=== PATIENT | female | born 1950 | race Caucasian/White ===

== ENCOUNTER 2018-12-13 07:02 | Outpatient (CLI) | payer MEDICARE, MEDICAID, SELFPAY ==
[2018-12-13 08:38] LABS: Anion Gap 6.8 mmol/L (3-11); BUN 24 mg/dL (7-18); CO2 32.2 mmol/L (21.0-32.0); CREATININE 0.81 mg/dL (0.55-1.02); Calcium 8.9 mg/dL (8.5-10.1); Calculated LDL 169; Chloride 103 mmol/L (98-107); Cholesterol 250 mg/dL (50-200); Glucose 85 mg/dL (70-100); HDL Cholesterol 69 mg/dL (40-60); Potassium 3.8 mmol/L (3.5-5.1); Sodium 142 mmol/L (136-145); Triglyceride 60 mg/dL (30-150)
== END 2018-12-13 07:22 ==
PROVIDERS: PCP Internal Medicine; Visit Provider Internal Medicine
DX: I10 Essential (primary) hypertension (principal); E78.00 Pure hypercholesterolemia, unspecified
CPT/HCPCS: 36415; 80048; 80061; 83721

== ENCOUNTER 2019-06-25 12:24 | Outpatient (REF) | payer MEDICARE, SELFPAY ==
[2019-06-25 13:32] LABS: Calculated LDL 138 mg/dL; Cholesterol 214 mg/dL (<200); HDL Cholesterol 65 mg/dL (40-60); Triglyceride 59 mg/dL (<150)
== END 2019-06-25 12:44 ==
LOC: LBN 12:24
PROVIDERS: PCP Internal Medicine; Visit Provider Internal Medicine
DX: E78.00 Pure hypercholesterolemia, unspecified (principal)
CPT/HCPCS: 80061

== ENCOUNTER 2019-08-22 02:19 | Outpatient (CLI) | payer MEDICARE, SELFPAY ==
--- NOTE | 2019-08-22 07:15 | DI.MAMMO_ITS ---
EXAM: MG MAMMO SCREENING CLINICAL HISTORY: SCREENING, Z12.39. TECHNIQUE: Bilateral full field digital CC and MLO mammographic images were obtained with 3D tomosyn thesis and utilizing computer aided detection (CAD). COMPARISON: Available for comparison. FINDINGS: Masses/Architectural Distortion: None seen. Microcalcifications: No suspicious pleomorphic-type are seen. Skin Thickening/Nipple Retraction: None. IMPRESSION: 1. No significant interval change with no specific features of malignancy noted. 2. Unless there is more urgent need, screening mammography is recommended, as per [employer] guidelines. ACR BI-RAD Category- 1 Negative Breast Density - Category C - Heterogeneously dense The mammogram demonstrates the patient's breast tissue is dense. Dense breast tissue is very common a nd is not abnormal but dense breast tissue can make it harder to find cancer on a mammogram. Also, de nse breast tissue may increase their breast cancer risk. This information about the result of the [facility] mogram report was provided to the patient to raise their awareness. Use this report when you speak wi th the patient about their risks for breast cancer, which includes their family history. At that time , you may recommend for more screening tests (Ultrasound or MRI) as they might be useful based on the ir risk. A negative radiographic report should not delay biopsy if a dominant or clinically suspicious mass is present. Up to ten percent of cancers are not identified on mammography. A negative report may reinforce clinical impression. Adenosis and dense breasts may obscure an underlying neoplasm. False positive reports average 6 to 10%. Patient will receive a letter notifying them of these results.
== END 2019-08-22 02:39 ==
PROVIDERS: PCP Internal Medicine; Visit Provider Family Medicine
DX: Z12.31 Encounter for screening mammogram for malignant neoplasm of breast (principal)
CPT/HCPCS: 77063; 77067

== ENCOUNTER 2019-11-13 15:45 | Outpatient (REF) | payer MEDICARE, SELFPAY ==
[2019-11-13 16:21] LABS: Bilirubin Negative (Negative); Blood Small (Negative); Clarity Sl Cloudy (Clear); Glucose Negative (Negative); Ketones Trace mg/dL (Negative); Leukocyte Esterase Moderate (Negative); Nitrite Negative (Negative); Specific Gravity >= 1.030 (1.005-1.025); Urobilinogen 0.2 EU/dL (Up TO 0.2)
[2019-11-13 17:47] LABS: Bacteria Many HPF (Negative); C & S Indicated? No/Sq. Contamination; Casts 5-10 Hyaline LPF (Negative); Crystals Negative HPF (Negative); Epithelial Cells Many HPF (Negative); Mucus Negative (Negative); RBC 20-50 HPF (0-2); WBC >50 HPF (0-5)
== END 2019-11-13 16:05 ==
LOC: LBN 15:45
PROVIDERS: PCP Internal Medicine; Visit Provider Internal Medicine
DX: R30.0 Dysuria (principal)
CPT/HCPCS: 81003; 81015

== ENCOUNTER 2021-08-17 01:21 | Outpatient (CLI) | payer MEDICARE, MEDICAID, SELFPAY ==
--- NOTE | 2021-08-17 07:00 | DI.MAMMO_ITS ---
Exam(s) MAMMO SCREENING EXAM: MAMMO SCREENING CLINICAL HISTORY: screening,z12.39 TECHNIQUE: Bilateral full field digital CC and MLO mammographic images were obtained with 3D tomosyn thesis and utilizing computer aided detection (CAD). COMPARISON: Available for comparison. FINDINGS: Masses/Architectural Distortion: None seen. Microcalcifications: No suspicious pleomorphic-type are seen. Skin Thickening/Nipple Retraction: None. IMPRESSION: 1. No significant interval change with no specific features of malignancy noted. 2. Unless there is more urgent need, screening mammography is recommended, as per [employer] guidelines. BI-RADS Category 1 - Negative Breast Density - Category C - Heterogeneously dense Breast density category C or D implies that the patient has dense breast tissue. Dense breast tissue is very common and is not abnormal but dense breast tissue can make it harder to find cancer on a ma mmogram. Also, dense breast tissue may increase their breast cancer risk. This information about the result of the mammogram report was provided to the patient to raise their awareness. Use this report when you speak with the patient about their risks for breast cancer, which includes their family hist ory. At that time, you may recommend for more screening tests (Ultrasound or MRI) as they might be us eful based on their risk. A negative radiographic report should not delay biopsy if a dominant or clinically suspicious mass is present. Up to ten percent of cancers are not identified on mammography. A negative report may reinforce clinical impression. Adenosis and dense breasts may obscure an underlying neoplasm. False positive reports average 6 to 10%. Patient will receive a letter notifying them of these results.
== END 2021-08-17 01:41 ==
PROVIDERS: PCP Internal Medicine; Visit Provider Internal Medicine
DX: Z12.31 Encounter for screening mammogram for malignant neoplasm of breast (principal)
CPT/HCPCS: 77063; 77067

== ENCOUNTER 2022-08-24 01:47 | Outpatient (CLI) | payer MEDICARE, SELFPAY ==
[2022-08-24 11:26] LABS: Anion Gap 8.5 mmol/L (3-11); BUN 20 mg/dL (7-18); CO2 28.5 mmol/L (21.0-32.0); CREATININE 0.9 mg/dL (0.55-1.02); Chloride 104 mmol/L (98-107); Glucose 94 mg/dL (74-106); Potassium 3.7 mmol/L (3.5-5.1); Sodium 141 mmol/L (136-145)
== END 2022-08-24 01:48 | disposition home or self-care (01) ==
LOC: LBO 01:48
PROVIDERS: PCP Nurse Practitioner Adult Health; Referring Provider Nurse Practitioner Adult Health; Visit Provider Nurse Practitioner Adult Health
DX: I10 Essential (primary) hypertension (principal)
CPT/HCPCS: 36415; 80048

== ENCOUNTER 2022-09-09 08:38 | Emergency (ER) | payer MEDICARE, SELFPAY ==
--- NOTE | 2022-09-09 08:30 | RT.EKG_ITS ---
APPROVED REPORT Exam: Resting ECG Reason for Exam: chest pain Patient Location: E HR:71 bpm ECG Measurements Heart Rate 71 AXIS AR 157 P 58 QRSd 72 QRS 29 QT 395 T 44 QTc 429 Conclusion Sinus rhythm...normal P axis, V-rate 60- 99 sinus rhythm, normal axis, non ischemic
[2022-09-09 08:51] VITALS: BP 160/101; PULSE 74; RESP 21; TEMP 36.5; O2SAT 96
[2022-09-09 08:54] VITALS: RESP 12
[2022-09-09 08:55] VITALS: RESP 18
--- NOTE | 2022-09-09 09:00 | DI.RAD_ITS ---
Exam(s) XR CHEST 2V PA LATERAL EXAM: XR CHEST 2V PA LATERAL CLINICAL HISTORY: chest pain, left side for two months. TECHNIQUE: 2D digital imaging was performed. COMPARISON: No exams were available for comparison FINDINGS: 2 views: Heart size is normal. The mediastinum is not widened. Lungs are clear. No infiltrates nor pleural effusions. IMPRESSION: No acute pulmonary findings. DATA REPOSITORY: RADIATION DOSE DELIVERED:
--- NOTE | 2022-09-09 09:03 | ED.GENADUL_ITS ---
Discharge Plan Disposition Patient Disposition: Home Discharge Details Chief Complaint: Chest Pain Clinical Impression: Elevated white blood cell count Primary Care Provider: Yamile Washington ED Provider: Star Martinez Home Meds and New Rx's Prescriptions: No Action alprazolam 0.25 mg tablet 0.25 mg PO PRN PRN (Reason: anxiety) Qty: 4 0RF Rx Instructions: Take just prior to leaving home and again on arrival at dentist's if needed amlodipine 2.5 mg tablet See Rx Instructions .ROUTE .COMPLEX Qty: 90 3RF Dose Instruction: TAKE ONE TABLET BY MOUTH EVERY DAY Rx Instructions: TAKE ONE TABLET BY MOUTH EVERY DAY aspirin [Aspir-81] 81 MG tablet,delayed release (DR/EC) 81 mg PO PRN PRN Patient Comments: takes on occassion Discharge Instructions Instructions: Leukocytosis (ED) Additional Instructions: Please follow closely with your primary care physician as your white blood cell count was extremely elevated today given your family history and the symptoms you are experiencing currently, it is advisable that you were evaluated further for possible lymphoma/leukemia. If you have any worsening symptoms or trouble obtaining close follow-up/testing please return to the emergency department Medical Decision Making 72-year-old female history of hypertension hypercholesterolemia presents with 2 months of left anterior chest discomfort, nonexertional, not exacerbated by movement or breathing, nonradiating, patient has no prior cardiac history no history of thromboembolic disease, no exogenous estrogen use. Patient is calm cooperative resting comfortably, mildly hypertensive on arrival; equal radial pulses, no peripheral edema lungs clear bilaterally. Consider musculoskeletal anterior chest discomfort versus anxiety versus ACS versus less likely PE versus less likely aortic pathology pneumonia or pneumothorax. However given age comorbidities and duration of symptoms will obtain basic labs troponin chest x- ray patient took an aspirin before arrival, EKG normal sinus rhythm some flattening of T waves lead III and poor baseline in V5 otherwise nonischemic. Disposition likely home with close follow-up pending results 10: 01 elevated white blood cell count with lymphocytic predominance. No infectious symptoms. Patient's mother did have lymphoma. Counseled patient regarding these findings and stressed the importance of close follow-up and further diagnostic testing as an outpatient. Given home care instructions and return precautions. HPI General Date/Time Provider Initiated Documentation: 09/09/22 08:51 . HPI Narrative: 72-year-old female history of hypercholesterolemia, hypertension, presents with anterior chest pain over the last several months persistent in nature left-sided nonradiating. Patient denies history of cardiac disease. Denies history of thromboembolic disease. No history of exogenous estrogen use. Related Data Home Medications Medication Instructions Recorded Confirmed aspirin 81 mg tablet,delayed 81 mg PO PRN PRN 08/20/17 09/09/22 release (Aspir-) alprazolam 0.25 mg tablet 0.25 mg PO PRN PRN anxiety #4 tabs 07/07/21 09/09/22 amlodipine 2.5 mg tablet See Rx Instructions .Route 06/29/22 09/09/22 .COMPLEX #90 tabs Previous Rx's Medication Instructions Recorded alprazolam 0.25 mg tablet 0.25 mg PO PRN PRN anxiety #4 tabs 07/07/21 amlodipine 2.5 mg tablet See Rx Instructions .Route 06/29/22 .COMPLEX #90 tabs Allergies Allergy/AdvReac Type Severity Reaction Status Date / Time Sulfa (Sulfonamide Allergy Severe skin rash Verified 09/09/22 08:56 Antibiotics) General Stated Complaint: Chest Pain BONITA: 3 Review of Systems Narrative: Review of Systems Constitutional: negative Eyes: negative ENT: negative Cardiovascular: Chest pain Respiratory: negative Gastrointestinal: negative : negative Musculoskeletal: negative Skin: negative Neurologic: negative Psych: negative PFSH All Active Problems (Updated 09/09/22 @ 10:04 by Star Martinez MD) Elevated white blood cell count (Acute) Facial eczema (Acute) Essential hypertension (Chronic ~2018) Pure hypercholesterolemia (Chronic 05/28/14) Declines statin (2022) Medical History (Updated 09/09/22 @ 10:04 by Star Martinez MD) Anxiety Alprazolam for dental care Blepharitis, unspecified (06/16/15) Family history of colon cancer (~08/2022) declines colonoscopy Family History (Updated 08/15/22 @ 12:01 by Yamile Washington NP) Father Hyperlipidemia Hypertension Family hx of prostate cancer Maternal Grandmother Breast cancer Mother , Lymphoma Depression Anxiety and possible Bipolar Daughter , age 54 years Colon cancer Son Suicide Social History Smoking/Tobacco Use Status: Former Tobacco Use Smoking risk assessment performed?: Yes Alcohol Intake: never Drug use: Never Substance use type: does not use Household members: spouse, children and other Details: father Number of Children: 5 Communication Needs: Corrective Lenses 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, 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 What is your relationship status?: How often do you talk on the phone with friends or family?: three or more times per week Panel score (0-1 are the most socially isolated patients): 2 What type of physical activity do you participate in: walking Seatbelt use: always Drive intox or ride w/intox party bus driver: No Working smoke detector in home: Yes Carbon monox detector in home: Yes Do you feel safe in your relationship?: Yes Exam Narrative Exam Narrative: Physical Examination General: alert, awake, cooperative, resting comfortably, no acute distress HEENT: normocephalic, atraumatic; PERRL, EOM intact, conjunctiva normal; no nasal discharge; moist mucous membranes, oral and pharyngeal mucosa normal, tolerating secretions Neck: supple, trachea midline; full ROM Chest: normal to inspection Respiratory: normal respiratory effort, speaking in full sentences, clear to auscultation, no wheezing, rales or rhonchi Cardiac: regular rate, regular rhythm, S1S2 intact, no murmurs rubs or gallops; equal regular radial pulses GI: abdomen soft, non-tender, non-distended; no palpable mass or hepatosplenomegaly Skin: no lesions, rashes or trauma appreciated Neuro: AAOx3, normal speech, moving all extremities Extremities: No peripheral edema Psych: Appropriate mood and affect Course Vital Signs Vital signs: Vital Signs Temperature 36.5 C 09/09/22 08:51 Pulse 74 09/09/22 08:51 Respiratory Rate 21 09/09/22 08:51 Blood Pressure 160/101 H 09/09/22 08:51 Pulse Oximetry 96 09/09/22 08:51 Temperature 36.5 C 09/09/22 08:51 Temperature Source Temporal Artery Scan 09/09/22 08:51 Pulse 74 09/09/22 08:51 Respiratory Rate 18 09/09/22 08:55 Respiratory Effort Normal, Non-Labored 09/09/22 08:55 Respiratory Depth Normal 09/09/22 08:55 Respiratory Pattern Normal 09/09/22 08:55 Blood Pressure 160/101 H 09/09/22 08:51 Blood Pressure Position Sitting 09/09/22 08:51 Pulse Oximetry 96 09/09/22 08:51 Oxygen Delivery Method Room Air 09/09/22 08:51 Oxygen Flow Rate 0 09/09/22 08:51 Pain Level 4 09/09/22 08:54
[2022-09-09 09:13] LABS: HCT 40.5 % (36.0-46.0); HGB 12.8 g/dL (11.2-15.7); MCHC 31.6 % (32.0-36.0); MCV 92 fL (80-95); MPV 8.8 fL (8.0-11.0); Platelet Count 232 10^3/uL (130-400); RBC 4.41 10^6/uL (3.93-5.22); RDW 12.7 % (11.7-14.6); RDW-SD 42.4 fL
[2022-09-09 09:32] LABS: Absolute Lymphocyte Count 43.43 10^3/uL (1.2-3.4); Absolute Monocyte Count 0.49 10^3/uL (0.1-0.8); Absolute Neutrophil Count 4.88 10^3/uL (1.2-6.7); Diff Comment Manual Differential; RBC Morphology Normal
[2022-09-09 09:37] LABS: ALT 16 U/L (14-59); AST 13 U/L (15-37); Alkaline Phosphatase 40 U/L (46-116); Anion Gap 9.2 mmol/L (3-11); BUN 23 mg/dL (7-18); Bilirubin, Total 0.5 mg/dL (0.2-1.0); CO2 27.8 mmol/L (21.0-32.0); CREATININE 0.9 mg/dL (0.55-1.02); Calcium 8.9 mg/dL (8.5-10.1); Chloride 104 mmol/L (98-107); Glucose 101 mg/dL (74-106); Potassium 3.3 mmol/L (3.5-5.1); Sodium 141 mmol/L (136-145); Total Protein 7.2 g/dL (6.4-8.2); Troponin I < 50 ng/L (<or=60)
--- NOTE | 2022-09-09 10:02 | NUR.NOTE ---
Nursing Note: PT info faxed to PCP for follow up KAMLESH for Leukocytosis & concern for Lymphoma. Sharon, ED
[2022-09-09 10:09] VITALS: BP 148/87; PULSE 92; RESP 18; O2SAT 97
== END 2022-09-09 10:10 | disposition home or self-care (01) ==
PROVIDERS: Emergency Provider Emergency Medicine; PCP Nurse Practitioner Adult Health
DX: D72.829 Elevated white blood cell count, unspecified (principal); I10 Essential (primary) hypertension; Z79.82 Long term (current) use of aspirin
CPT/HCPCS: 36415; 80053; 93005; 99283; 71046; 84484; 85025; 93010; 99285

== ENCOUNTER 2022-09-14 02:47 | Outpatient (CLI) | payer MEDICARE, SELFPAY ==
[2022-09-14 12:22] LABS: HCT 39.5 % (36.0-46.0); HGB 12.8 g/dL (11.2-15.7); MCH 29.7 pg (27.0-33.0); MCHC 32.4 % (32.0-36.0); MCV 92 fL (80-95); MPV 8.9 fL (8.0-11.0); Platelet Count 251 10^3/uL (130-400); RBC 4.31 10^6/uL (3.93-5.22); RDW 12.6 % (11.7-14.6); RDW-SD 41.6 fL
[2022-09-14 12:25] LABS: ESR 4 mm/hr (0-30)
[2022-09-14 12:43] LABS: Absolute Basophil Count 0.52 10^3/uL (0.0-0.2); Absolute Lymphocyte Count 44.78 10^3/uL (1.2-3.4); Absolute Neutrophil Count 6.77 10^3/uL (1.2-6.7); Atypical Lymphocytes % 1; Diff Comment Manual Differential; RBC Morphology Normal; WBC 52.07 10^3/uL (4.4-10.8)
[2022-09-14 16:36] LABS: ALT 15 U/L (14-59); AST 12 U/L (15-37); Albumin 4.2 g/dL (3.4-5.0); Alkaline Phosphatase 42 U/L (46-116); Anion Gap 9.3 mmol/L (3-11); BUN 24 mg/dL (7-18); Bilirubin, Total 0.4 mg/dL (0.2-1.0); CO2 29.7 mmol/L (21.0-32.0); CREATININE 0.8 mg/dL (0.55-1.02); Calcium 9.9 mg/dL (8.5-10.1); Chloride 105 mmol/L (98-107); Estimated GFR 77.75 (mL/min/1.73m2); Glucose 102 mg/dL (74-106); Potassium 3.6 mmol/L (3.5-5.1); Sodium 144 mmol/L (136-145); TSH (W/Ref FT4) 3.54 uIU/mL (0.36-3.74); Total Protein 7.5 g/dL (6.4-8.2)
[2022-09-14 16:37] LABS: C-Reactive Protein < 0.05 mg/dL (0.0-0.3)
[2022-09-14 17:14] LABS: Calculated LDL 201 mg/dL (<100); Cholesterol 284 mg/dL (<200); Folate 18.4 ng/mL (8.6-20.0); HDL Cholesterol 65 mg/dL (40-60); Triglyceride 94 mg/dL (<150); Vitamin B12 292 pg/mL (193-986)
[2022-09-15 10:28] LABS: HIV-1/2 Ag & Ab Screen Negative (Negative)
[2022-09-15 10:48] LABS: Hepatitis C Ab w Rflx HCV PCR Negative (Negative)
== END 2022-09-14 02:48 | disposition home or self-care (01) ==
LOC: LBO 02:47
PROVIDERS: PCP Nurse Practitioner Adult Health; Visit Provider Nurse Practitioner Adult Health
DX: D72.829 Elevated white blood cell count, unspecified (principal); E78.00 Pure hypercholesterolemia, unspecified; R11.0 Nausea; R53.83 Other fatigue; Z11.4 Encounter for screening for human immunodeficiency virus [HIV]; Z11.59 Encounter for screening for other viral diseases; Z13.220 Encounter for screening for lipoid disorders
CPT/HCPCS: 36415; 80053; 80061; 85652; 86803; 87389; 82607; 82746; 84443; 85025; 86140

== ENCOUNTER 2023-01-18 02:38 | Outpatient (CLI) | payer MEDICARE, MEDICAID, SELFPAY ==
[2023-01-19 09:56] LABS: Lyme Ab w Rflx to Lyme Confirm Negative (Negative)
[2023-01-20 19:26] LABS: Anaplasma phagocytophilum Negative (Negative); B. miyamotoi PCR Negative (Negative); Babesia divergens/MO-1 Negative (Negative); Babesia duncani Negative (Negative); Babesia microti Negative (Negative); Ehrlichia chaffeensis Negative (Negative); Ehrlichia ewingii/canis Negative (Negative); Ehrlichia muris eauclairensis Negative (Negative)
== END 2023-01-18 02:39 | disposition home or self-care (01) ==
LOC: LBO 02:38
PROVIDERS: PCP Nurse Practitioner Adult Health; Visit Provider Nurse Practitioner Family
DX: W57.XXXA Bitten or stung by nonvenomous insect and other nonvenomous arthropods, initial encounter (principal); S40.861A Insect bite (nonvenomous) of right upper arm, initial encounter
CPT/HCPCS: 36415; 87798; 86618

== ENCOUNTER 2023-08-07 15:23 | Outpatient (REF) | payer MEDICARE, MEDICAID, SELFPAY | END 2023-08-07 15:24 | disposition home or self-care (01) | LOC: LBN 15:23 | PROVIDERS: PCP Nurse Practitioner Adult Health; Visit Provider Nurse Practitioner Family | DX: R35.89 Other polyuria (principal) | CPT/HCPCS: 87086 ==

== ENCOUNTER → 2023-08-16 01:33 | Outpatient (CLI) | payer MEDICARE, MEDICAID, SELFPAY ==
--- NOTE | 2023-08-16 | DI.US_ITS ---
Exam(s) US PELVIS TRANSVAGINAL EXAM: US PELVIS TRANSVAGINAL CLINICAL HISTORY: LT LOWER QUAD PAIN, R10.32 TECHNIQUE: Ultrasound of the pelvis was performed both transabdominal and transvaginal. COMPARISON: US RENAL ULTRASOUND(P) from 06/07/2011 FINDINGS: UTERUS: Measures 5 cm length x 3.3 cm AP x 3.8 cm wide. There are multiple small hyperechoic foci in the myometrium in the region the fundus. May represent tiny calcified fibroids. Endometrial thickness measures 4-5 mm. There is no fluid in the endometrial canal. However, there is tiny amount of fluid in the endocervic al canal. There are dilated veins in both adnexal regions, probably indicating element of pelvic congestion syn drome. OVARIES: Both not identified CUL-DE-SAC: No free fluid evident. IMPRESSION: 1. Both ovaries are not identified on this study. This is not a common in this age group. 2. There are hyperechoic foci in the myometrium near the fundus, possibly representing small calcifie d uterine fibroids. Endometrial thickness is upper normal. 3. Dilated veins in both adnexal regions indicates an element of pelvic congestion syndrome DATA REPOSITORY:
== END ==
PROVIDERS: PCP Nurse Practitioner Adult Health; Visit Provider Nurse Practitioner Family
DX: R10.32 Left lower quadrant pain (principal)
CPT/HCPCS: 76830; 76856

== ENCOUNTER → 2023-08-31 00:24 | Outpatient (CLI) | payer MEDICARE, MEDICAID, SELFPAY ==
--- NOTE | 2023-08-31 08:05 | DI.MAMMO_ITS ---
Exam(s) MAMMO SCREENING EXAM: MAMMO SCREENING CLINICAL HISTORY: screening,z12.39 TECHNIQUE: Bilateral full field digital CC and MLO mammographic images were obtained with 3D tomosyn thesis and utilizing computer aided detection (CAD). COMPARISON: Available for comparison. FINDINGS: Masses/Architectural Distortion: None seen. No suspicious or new masses are seen. Intraparenchymal l ymph nodes are seen in both breasts. These are stable. Microcalcifications: No suspicious pleomorphic-type are seen. Skin Thickening/Nipple Retraction: None. IMPRESSION: 1. No significant interval change with no specific features of malignancy noted. 2. Unless there is more urgent need, screening mammography is recommended, as per [employer] guidelines. BI-RADS Category 1 - Negative Breast Density - Category C - Heterogeneously dense Breast density category C or D implies that the patient has dense breast tissue. Dense breast tissue is very common and is not abnormal but dense breast tissue can make it harder to find cancer on a ma mmogram. Also, dense breast tissue may increase their breast cancer risk. This information about the result of the mammogram report was provided to the patient to raise their awareness. Use this report when you speak with the patient about their risks for breast cancer, which includes their family hist ory. At that time, you may recommend for more screening tests (Ultrasound or MRI) as they might be us eful based on their risk. A negative radiographic report should not delay biopsy if a dominant or clinically suspicious mass is present. Up to ten percent of cancers are not identified on mammography. A negative report may reinforce clinical impression. Adenosis and dense breasts may obscure an underlying neoplasm. False positive reports average 6 to 10%. Patient will receive a letter notifying them of these results.
== END ==
PROVIDERS: PCP Nurse Practitioner Adult Health; Visit Provider Nurse Practitioner Adult Health
DX: Z12.31 Encounter for screening mammogram for malignant neoplasm of breast (principal)
CPT/HCPCS: 77063; 77067

== ENCOUNTER → 2023-09-13 04:08 | Outpatient (CLI) | payer MEDICARE, MEDICAID, SELFPAY ==
--- NOTE | 2023-09-13 07:15 | DI.US_ITS ---
Exam(s) US PELVIS TRANSVAGINAL EXAM: US PELVIS TRANSVAGINAL CLINICAL HISTORY: re-check stripe,female pelvic congestion syndrom,n94.89 TECHNIQUE: Transabdominal and transvaginal imaging was performed using standard protocol. COMPARISON: US US PELVIS TRANSVAGINAL from 08/16/2023 FINDINGS: UTERUS: Anteverted. 5.0 x 3.8 x 3.4 cm Endometrium: Not well seen. Measured a 4 millimeters. Mm Myometrium: Referral hyperechoic foci likely representing vascular calcification. Cervix: Unremarkable. OVARIES: Not definitely visualized. Dilated bilateral veins in the adnexal regions, left greater than right, s imilar to prior exam. DOPPLER: Color: Symmetric and uniform flow to both ovaries. No hyperemia. CUL-DE-SAC: Free fluid: None. IMPRESSION: 1. Endometrium not well seen, measured at 4 millimeters. 2. Unremarkable ovaries not visualized. 3. Dilated pelvic veins, left greater than right, could indicate pelvic congestion syndrome. DATA REPOSITORY:
== END ==
PROVIDERS: PCP Nurse Practitioner Adult Health; Visit Provider Obstetrics & Gynecology
DX: N94.89 Other specified conditions associated with female genital organs and menstrual cycle (principal)
CPT/HCPCS: 76830; 76856

== ENCOUNTER 2024-08-12 00:46 | Outpatient (CLI) | payer MEDICARE, MEDICAID, SELFPAY ==
--- NOTE | 2024-08-12 07:45 | DI.CT_ITS ---
Exam(s) CT SINUS WO EXAM: CT SINUS WO CLINICAL HISTORY: chronic left-sided sinus pain,j32,9. Evaluate for sinusitis. TECHNIQUE: Imaging Protocol: Axial computed tomography images with coronal and sagittal reformatted images were created and reviewed. COMPARISON: No exams were available for comparison FINDINGS: Frontal sinuses: Normally aerated. Ethmoid air cells: Normally aerated. Maxillary sinuses: Normally aerated. Sphenoid sinuses: Normally aerated. Ostiomeatal complexes: Patent. Nasal cavity: Septum is midline. Visualized regional soft tissues: No acute findings. Orbits: Unremarkable. Bones: Unremarkable. Mastoid Air Cells: Normally aerated. Visualized portions of the brain: Unremarkable as visualized. IMPRESSION: No evidence of acute or chronic sinus disease. RADIATION DOSE DELIVERED: 96.57mGy.cm Total DLP DATA REPOSITORY: All CT scans at this facility are submitted to the National Radiology Data Registry (NRDR) Dose Index Registry (DIR) with the [employer] (ACR). RADIATION OPTIMIZATION: All CT scans at this facility use at least one of these dose optimization te chniques: automated exposure control; mA and/or kV adjustment per patient size (includes targeted exa ms where dose is matched to clinical indication); or iterative reconstruction.
== END 2024-08-12 01:06 ==
LOC: DI 00:46
PROVIDERS: PCP Nurse Practitioner Adult Health; Visit Provider Registered Nurse Maternal Newborn
DX: J32.9 Chronic sinusitis, unspecified (principal)
CPT/HCPCS: 70486

== ENCOUNTER → 2024-08-20 12:40 | Outpatient (BNVA) | payer MEDICARE, MEDICAID, SELFPAY | PROVIDERS: PCP Nurse Practitioner Adult Health; Referring Provider Registered Nurse Maternal Newborn; Visit Provider Psychiatry & Neurology Neurology | DX: G44.51 Hemicrania continua (principal); G44.52 New daily persistent headache (NDPH); R44.2 Other hallucinations | CPT/HCPCS: 99215 ==

== ENCOUNTER 2024-09-24 00:45 | Outpatient (CLI) | payer MEDICARE, MEDICAID, SELFPAY ==
[2024-09-24] MEDS: Gadoterate meglumine 20 ML VIAL 14 ML IVP (09:03)
--- NOTE | 2024-09-24 09:09 | DI.MRI_ITS ---
Exam(s) MR BRAIN WO/W EXAM: MR BRAIN WO/W CLINICAL HISTORY: new onset [place], has lymphoma,lt facial pain,r51.9. TECHNIQUE: Multiplanar multisequence MRI of the brain was performed. CONTRAST MATERIAL: IV Contrast: 14 ML of Dotarem contrast administered. COMPARISON: No exams were available for comparison FINDINGS: VENTRICLES AND EXTRA AXIAL SPACES: Normal in size and morphology for the patient's age. HEMORRHAGE: None. CEREBRAL PARENCHYMA: No focus of restricted diffusion to suggest acute infarct. No space-occupying le ayaz identified. No abnormal high signal lesions in the white matter. BRAINSTEM/CEREBELLUM: Normal. CALVARIUM: Normal. ENHANCEMENT: No suspicious enhancement identified. VISUALIZED PARANASAL SINUSES/MASTOIDS: Clear. Orbits: Unremarkable. Pituitary: Not enlarged. Vasculature: Normal flow voids. IMPRESSION: Unremarkable MRI of the brain. DATA REPOSITORY:
== END 2024-09-24 01:05 ==
LOC: DI 00:46
PROVIDERS: PCP Nurse Practitioner Adult Health; Visit Provider Psychiatry & Neurology Neurology
DX: R51.9 Headache, unspecified (principal)
CPT/HCPCS: 70553

== ENCOUNTER → 2024-10-01 10:43 | Outpatient (BNVA) | payer MEDICARE, MEDICAID, SELFPAY | PROVIDERS: PCP Nurse Practitioner Adult Health; Referring Provider Nurse Practitioner Adult Health; Visit Provider Psychiatry & Neurology Neurology | DX: G44.51 Hemicrania continua (principal); G44.52 New daily persistent headache (NDPH); R44.2 Other hallucinations | CPT/HCPCS: 99214 ==

== ENCOUNTER → 2025-01-28 08:40 | Outpatient (BNVA) | payer MEDICARE, MEDICAID, SELFPAY | PROVIDERS: PCP Nurse Practitioner Adult Health; Visit Provider Psychiatry & Neurology Neurology | DX: G44.51 Hemicrania continua (principal); G44.52 New daily persistent headache (NDPH); R44.2 Other hallucinations; I10 Essential (primary) hypertension | CPT/HCPCS: 99214 ==

== ENCOUNTER 2025-06-16 10:19 | Outpatient (CLI) | payer MEDICARE, MEDICAID, SELFPAY ==
[2025-06-16 09:12] LABS: Vitamin B12 1362 pg/mL (211-911)
[2025-06-16 09:13] LABS: Ferritin 34 ng/mL (7-271)
[2025-06-16 09:16] LABS: Folate > 24.0 ng/mL (>5.38)
== END 2025-06-16 10:20 | disposition home or self-care (01) ==
LOC: LBO 10:20
PROVIDERS: PCP Nurse Practitioner Adult Health; Visit Provider Nurse Practitioner Adult Health
DX: D64.9 Anemia, unspecified (principal)
CPT/HCPCS: 36415; 82607; 82728; 82746